=== PATIENT | male | born 1990 | race African-American/Black ===

== ENCOUNTER 2021-04-16 20:00 | Emergency (ER) | payer OTHER ==
[2021-04-16] MEDS ORDERED: Ketorolac Tromethamine 30 MG/ML VIAL ONE (20:08)
[2021-04-17 18:27] LABS: SARS-CoV-2 PCR by NAA DETECTED (NotDetected)
== END 2021-04-16 21:12 | disposition home or self-care (01) ==
LOC: NAV ERS 20:00
DX: U07.1 COVID-19 (principal); R07.9 Chest pain, unspecified
CPT/HCPCS: 87804; 93005; 96374; J1885; U0003; U0005